=== PATIENT | male | born 1980 | race Caucasian/White ===

== ENCOUNTER → 2022-04-29 | Emergency (ER) | payer SELFPAY ==
[~2022-04-29] VITALS: Ht 160 cm; Wt 64.4 kg
[~2022-04-29] MED LIST: IBUPROFEN 600 MG TABLET ONE; IBUPROFEN 600 MG TABLET PO ONE
--- NOTE | 2022-04-29 12:15 | NUR ---
Patient walked into ER with steady gait. NAD noted. A/O x 4.
--- NOTE | 2022-04-29 12:20 | NUR ---
Dr. Ramirez at bedside. MSE in progress.
--- NOTE | 2022-04-29 12:43 | NUR ---
Patient discharged to home in stable condition. A/ox3. NAD noted. All belongings with patient. Written and verbal after care instructions given. Patient verbalizes understanding of instructions. Stressed follow up or return to ER for worsening s/s.
[2022-04-29 12:47] VITALS: BP 127/81
--- NOTE | 2022-04-29 12:48 | NUR ---
Patient discharged to home in stable condition. Written and verbal after care instructions given. Patient verbalizes understanding of instructions. Stressed follow up or return to ER for worsening s/s.
== END | disposition home or self-care (01) ==
LOC: ER 11:41
DX: M79.662 Pain in left lower leg (principal); M25.572 Pain in left ankle and joints of left foot
CPT/HCPCS: 73590; 73610; A4663